=== PATIENT | female | born 1935 | race Caucasian/White ===

== ENCOUNTER → 2018-08-17 10:39 | Outpatient (POV) | payer MEDICARE, SELFPAY ==
[2018-08-17 10:54] VITALS: BP 145/62; PULSE 67; RESP 18; O2SAT 98; BMI 28.3
--- NOTE | 2018-08-17 13:05 | HMH.PMCON ---
Assessment and Plan (1) Degenerative disc disease, lumbar Current visit: Yes Status: Chronic Category: Medical Code(s): M51.36 - Other intervertebral disc degeneration, lumbar region (2) Facet arthropathy, lumbar Current visit: Yes Status: Acute Category: Medical Code(s): M47.816 - Spondylosis without myelopathy or radiculopathy, lumbar region - Assessment and plan all Dx Assessment and Plan for all problems:: We will schedule the patient for facet injections/medial branch block to L3-L4 L4-L5 and L5-S1. The patient says she has never had any type of injective therapy in the past. She reports that she is not on any anticoagulation therapy. She did not bring a medication list with her today. We will schedule the patient for the procedure and follow-up with her after. She will continue her home stretching program and anti-inflammatories at home. She is been instructed to call the office if she has any concerns prior to her next appointment. The end HPI - Data of Consult Patient: new to practice Consult date: 08/17/18 Requesting Physician: Yenni Segura APRN Primary Care Provider: Benitez Delgadillo - Consult Narrative Reason for consult: Back pain History of present illness: Ms. Díaz is a 83 year old female who presents today for referral from Daniel Newman. Patient has a chronic history of low back pain. She says that her pain is low back, worsening with turning at the waist and standing. She is unable to walk around [employer] without getting pain in her back in the side and front of legs .The patient does have a history of an SI fusion with Dr. Johns at [facility]. She was also scheduled to have a lumbar fusion with Dr. Krissy gonzalez, but canceled his she said cardiology would not clear me . The patient is interested in injective therapy and would like to discuss her options today. CC: Yenni Segura APRN [facility] History I have reviewed the patient's past medical history: Yes Medical History: Reports:: Diabetes Mellitus Type 2, Palpitations *Have you ever received a pneumonia vaccine?: No *Have you received a flu vaccine this season?: No Other Surgeries: Yes: Cholecystectomy Amputation: No Fractures: No - *Social History Smoking Status: Never smoker Alcohol Intake: never *Occupational Status:: other *Travel in the last 8 weeks: None Family Hx:: Unable to obtain Review of Systems - Review of Systems Review of Systems General: No recent weight changes, no fever, no sleep disturbances Respiratory: No cough, no shortness of air, no recurring pulmonary infections Cardiovascular/peripheral vascular: No chest pain, no palpitations, no edema, no shortness of breath Gastrointestinal: No new onset incontinence, normal bowel movements reported Genitourinary: No new onset incontinence Musculoskeletal: Back pain, bilateral leg pain Psychiatric: Normal mood/affect Neurological: [Denies weakness in extremities], [denies balance issues] Objective Vital signs: Pulse Resp BP Pulse Ox 67 18 145/62 H 98 08/17/18 10:54 08/17/18 10:54 08/17/18 10:54 08/17/18 10:54 Narrative: Physical exam General: Alert and oriented x3, no acute distress, pleasant and cooperative, [on room air] Lungs: Respirations even and unlabored, symmetrical chest expansion Eyes: PERRL Musculoskeletal: Flexion and extension of lumbar spine somewhat guarded secondary to pain, deep tendon reflexes normal, strength in upper and lower extremities [5/5], slightly antalgic gait noted, positive Kemps test Neurological: 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
--- NOTE | 2018-08-17 13:11 | P.CONS_ITS ---
Assessment and Plan (1) Degenerative disc disease, lumbar Current visit: Yes Status: Chronic Category: Medical Code(s): M51.36 - Other intervertebral disc degeneration, lumbar region (2) Facet arthropathy, lumbar Current visit: Yes Status: Acute Category: Medical Code(s): M47.816 - Spondylosis without myelopathy or radiculopathy, lumbar region - Assessment and plan all Dx Assessment and Plan for all problems:: We will schedule the patient for facet injections/medial branch block to L3-L4 L4-L5 and L5-S1. The patient says she has never had any type of injective therapy in the past. She reports that she is not on any anticoagulation therapy. She did not bring a medication list with her today. We will schedule the patient for the procedure and follow-up with her after. She will continue her home stretching program and anti-inflammatories at home. She is been instructed to call the office if she has any concerns prior to her next appointment. The end HPI - Data of Consult Patient: new to practice Consult date: 08/17/18 Requesting Physician: Yenni Segura APRN Primary Care Provider: Benitez Delgadillo - Consult Narrative Reason for consult: Back pain History of present illness: Ms. Díaz is a 83 year old female who presents today for referral from Daniel krishna. Patient has a chronic history of low back pain. She says that her pain is low back, worsening with turning at the waist and standing. She is unable to [facility] without getting pain in her back in the side and front of legs .The patient does have a history of an SI fusion with Dr. Johns at [facility]. She was also scheduled to have a lumbar fusion with Dr. Krissy gonzalez, but canceled his she said cardiology would not clear me . The patient is interested in injective therapy and would like to discuss her options today. CC: Yenni Segura APRN [facility] History I have reviewed the patient's past medical history: Yes Medical History: Reports:: Diabetes Mellitus Type 2, Palpitations *Have you ever received a pneumonia vaccine?: No *Have you received a flu vaccine this season?: No Other Surgeries: Yes: Cholecystectomy Amputation: No Fractures: No - *Social History Smoking Status: Never smoker Alcohol Intake: never *Occupational Status:: other *Travel in the last 8 weeks: None Family Hx:: Unable to obtain Review of Systems - Review of Systems Review of Systems General: No recent weight changes, no fever, no sleep disturbances Respiratory: No cough, no shortness of air, no recurring pulmonary infections Cardiovascular/peripheral vascular: No chest pain, no palpitations, no edema, no shortness of breath Gastrointestinal: No new onset incontinence, normal bowel movements reported Genitourinary: No new onset incontinence Musculoskeletal: Back pain, bilateral leg pain Psychiatric: Normal mood/affect Neurological: [Denies weakness in extremities], [denies balance issues] Objective Vital signs: Pulse Resp BP Pulse Ox 67 18 145/62 H 98 08/17/18 10:54 08/17/18 10:54 08/17/18 10:54 08/17/18 10:54 Narrative: Physical exam General: Alert and oriented x3, no acute distress, pleasant and cooperative, [on room air] Lungs: Respirations even and unlabored, symmetrical chest expansion Eyes: PERRL Musculoskeletal: Flexion and extension of lumbar spine somewhat guarded secondary to pain, deep tendon reflexes
== END ==
PROVIDERS: PCP Family Medicine; Visit Provider Clinical Nurse Specialist Family Health
DX: M51.36 Other intervertebral disc degeneration, lumbar region (principal); M47.816 Spondylosis without myelopathy or radiculopathy, lumbar region
CPT/HCPCS: 99202

== ENCOUNTER → 2018-09-27 14:03 | Outpatient (POV) | payer MEDICARE, SELFPAY ==
[2018-09-27 15:09] VITALS: BP 102/68; PULSE 63; RESP 18; O2SAT 98; BMI 30.7
--- NOTE | 2018-09-27 15:42 | HMH.PAINSOAP ---
[facility] Pain Management SOAP Note Subjective:: Patient is a 83-year-old white female who presents today after a L3-L4 L4-L5 L5-S1 bilateral facet joint injection. Patient states that it worked extremely well for her she had 80% relief for 3 weeks. She states her pain is back now to 7 out of 10 level. Patient is quite focused on the fact that she had surgery scheduled with Dr. Krissy gonzalez however it was canceled due to cardiac clearance. Patient states she does not understand why it was canceled however she has not ever followed up with Dr. Krissy gonzalez. I encouraged her to do so she was concerned in regards to this. Patient was also seen by Dr. Knowles for pain management which she had injections however she is unsure which when she had. Patient is interested in an RFA and I believe it would be beneficial for her. She is quite a lot of difficulty with activities of daily living and I recommended twisting or turning motion. ROS General: no recent weight change, no fever, no sleep disturbances Respiratory: no cough, no shortness of air, no recurring pulmonary infections Cardiovascular/Peripheral Vascular: No chest pain, No palpitations, no edema, no shortness of breath. Gastrointestinal: no incontinence, normal bowel movements reported Genitourinary: no incontinence Musculoskeletal: Back pain Psychiatric: normal mood/ affect Neurological: [denies weakness in extremities], [denies balance issues] Objective:: Physical Exam General: Alert and oriented x3, no acute distress, pleasant and cooperative, [on room air] Lungs: Resps E/U, Symmetrical chest expansion, Eyes: PERRL Musculoskeletal: Flexion and extension of lumbar spine somewhat guarded secondary to pain, deep tendon reflexes normal, strength in upper and lower extremities [5/5], [abnormal gait noted] positive Kemps test and bilateral lumbar facet loading positive Neurological: 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 Knowles. If she has we will move forward with a burn starting with a left-sided L3-L4 L4-L5 L5-S1 and then in 2 weeks doing the right side. She is not on any anticoagulation therapy she is continuing a home stretching program. I will follow-up with the patient after this reassess her symptoms at that time she is been instructed to call the office if she has any issues prior to her next appointment. Dr. Bowser has reviewed this note and agrees with this plan of care. This note was dictated using voice recognition software and may contain errors or omissions Pain Management Hx Components *Have you ever received a pneumonia vaccine?: Yes *Have you received a flu vaccine this season?: Yes - *Social History *Occupational Status:: other *Travel in the last 8 weeks: None
--- NOTE | 2018-09-27 15:45 | P.CONS_ITS ---
[facility] Pain Management SOAP Note Subjective:: Patient is a 83-year-old white female who presents today after a L3-L4 L4-L5 L5- S1 bilateral facet joint injection. Patient states that it worked extremely well for her she had 80% relief for 3 weeks. She states her pain is back now to 7 out of 10 level. Patient is quite focused on the fact that she had surgery scheduled with Dr. Krissy gonzalez however it was canceled due to cardiac clearance. Patient states she does not understand why it was canceled however she has not ever followed up with Dr. Krissy gonzalez. I encouraged her to do so she was concerned in regards to this. Patient was also seen by Dr. Knowles for pain management which she had injections however she is unsure which when she had. Patient is interested in an RFA and I believe it would be beneficial for her. She is quite a lot of difficulty with activities of daily living and I recommended twisting or turning motion. ROS General: no recent weight change, no fever, no sleep disturbances Respiratory: no cough, no shortness of air, no recurring pulmonary infections Cardiovascular/Peripheral Vascular: No chest pain, No palpitations, no edema, no shortness of breath. Gastrointestinal: no incontinence, normal bowel movements reported Genitourinary: no incontinence Musculoskeletal: Back pain Psychiatric: normal mood/ affect Neurological: [denies weakness in extremities], [denies balance issues] Objective:: Physical Exam General: Alert and oriented x3, no acute distress, pleasant and cooperative, [on room air] Lungs: Resps E/U, Symmetrical chest expansion, Eyes: PERRL Musculoskeletal: Flexion and extension of lumbar spine somewhat guarded secondary to pain, deep tendon reflexes normal, strength in upper and lower extremities [5/5], [abnormal gait noted] positive Kemps test and bilateral lumbar facet loading positive Neurological: 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 Knowles. If she has we will move forward with a burn starting with a left-sided L3-L4 L4-L5 L5-S1 and then in 2 weeks doing the right side. She is not on any anticoagulation therapy she is continuing a home stretching program. I will follow-up with the patient after this reassess her symptoms at that time she is been instructed to call the office if she has any issues prior to her next appointment. Dr. Bowser has reviewed this note and agrees with this plan of care. This note was dictated using voice recognition software and may contain errors or omissions Pain Management Hx Components *Have you ever received a pneumonia vaccine?: Yes *Have you received a flu vaccine this season?: Yes - *Social History *Occupational Status:: other *Travel in the last 8 weeks: None
== END ==
PROVIDERS: PCP Family Medicine; Visit Provider Clinical Nurse Specialist Family Health
DX: M51.36 Other intervertebral disc degeneration, lumbar region (principal); M47.896 Other spondylosis, lumbar region
CPT/HCPCS: 99212